=== PATIENT | female | born 1950 | race African-American/Black ===

== ENCOUNTER 2016-11-23 08:46 | Emergency (ER) | payer MEDICAID ==
[~2016-11-23] VITALS: Ht 154.9 cm; Wt 78.0 kg
[~2016-11-23 08:46] MED LIST: FAMO20TA8 PO; FURO40TA5 PO; LEVO500T15 PO; SPIR100T24 PO; TRAM50TA3 PO
[2016-11-23 10:23] LABS: BASOPHILS % 1.6 % (0.0-2.0); EOSINOPHILS % 1.2 % (0.0-5.0); HEMATOCRIT. 39.5 % (36.0-48.0); HEMOGLOBIN. 13.2 g/dL (12.0-16.0); LYMPHOCYTES % 14.8 % (20.0-50.0); MEAN CORPUSCULAR HEMOGLOBIN 21.7 pg (28.0-32.0); MEAN CORPUSCULAR HGB CONC 33.4 g/dL (31.0-37.0); MEAN PLATELET VOLUME 8.3 fl (7.4-10.4); MONOCYTES % 6.6 % (2.0-8.0); NEUTROPHILS % 75.8 % (40.0-76.0); PLATELET 234 x1000/uL (130-400); RED BLOOD CELL COUNT 6.08 mill/uL (4.2-5.4); RED CELL DISTRIBUTION WIDTH 23.2 % (11.6-14.6)
[2016-11-23 10:24] LABS: ADD RBC MORPHOLOGY YES; DIFFERENTIAL COMMENT 1
[2016-11-23 10:33] LABS: PARTIAL THROMBOPLASTIN TIME 28.2 sec (24.0-34.0); PROTHROMBIN TIME 10.9 sec
[2016-11-23] MEDS ORDERED: TRAMADOL 50MG TABLET PO ONE (10:45)
[2016-11-23 10:47] LABS: ANISOCYTOSIS 3+; PLATELET ESTIMATE NORMAL
[2016-11-23 14:00] VITALS: BP 118/74
== END 2016-11-23 14:17 | disposition home or self-care (01) ==
LOC: ER 09:56
DX: R10.9 Unspecified abdominal pain (principal); Z88.6 Allergy status to analgesic agent; Z79.899 Other long term (current) drug therapy; M19.90 Unspecified osteoarthritis, unspecified site; C85.90 Non-Hodgkin lymphoma, unspecified, unspecified site; R60.9 Edema, unspecified; I10 Essential (primary) hypertension
CPT/HCPCS: 36415; 76700; 85025; 85610; 85730; 99285; Z7610

== ENCOUNTER 2018-09-16 22:51 | Inpatient (IN) | payer MEDICAID ==
[~2018-09-16] VITALS: Ht 157.5 cm; Wt 78.5 kg
[~2018-09-16 22:51] MED LIST changes: -LEVO500T15 PO; +LEVO500T2 PO; -SPIR100T24 PO; +SPIR100T5 PO
[2018-09-17] MEDS ORDERED: MORPHINE SULFATE 4 MG/ML CPJ (NOT FOR IM USE) IV STA (01:54)
[2018-09-17] MEDS ORDERED: SODIUM CHLORIDE 0.9% 500 ML IV ONE ×2 (02:15→05:00)
[2018-09-17 02:20] LABS: CLARITY URINE TURBID (CLEAR); COLOR URINE DARK YELLOW (YELLOW); KETONES URINE TRACE (NEGATIVE); LEUKOCYTE ESTERASE URINE TRACE (NEGATIVE); NITRITE URINE POSITIVE (NEGATIVE); OCCULT BLOOD URINE NEGATIVE (NEGATIVE); PROTEIN URINE 2+ (NEGATIVE); SPECIFIC GRAVITY URINE 1.028 (1.005-1.030)
[2018-09-17 02:32] LABS: HEMATOCRIT. 23.8 % (36.0-48.0); HEMOGLOBIN. 7.9 g/dL (12.0-16.0); MEAN CORPUSCULAR HEMOGLOBIN 22.9 pg (28.0-32.0); MEAN CORPUSCULAR VOLUME 68.6 fL (81.0-99.0); RED BLOOD CELL COUNT 3.47 mill/uL (4.2-5.4); RED CELL DISTRIBUTION WIDTH 23.8 % (11.6-14.6)
[2018-09-17 02:39] LABS: INR 1.3; PARTIAL THROMBOPLASTIN TIME 43.7 sec (23.4-31.0); PROTHROMBIN TIME 13.3 sec (9.1-11.1)
[2018-09-17 02:40] LABS: CHLORIDE 96 mEq/L (98-107)
[2018-09-17 02:53] LABS: MEAN PLATELET VOLUME 10.8 fl (7.4-10.4); PLATELET 79 x1000/uL (130-400)
[2018-09-17] MEDS ORDERED: CEFTRIAXONE 1 G PREMIX 50 ML IV ONE (03:15)
[2018-09-17] MEDS ORDERED: AZITHROMYCIN 500 MG in DEXT 5% WATER 250 ML IV SCH (03:15)
[2018-09-17] MEDS ORDERED: IOHEXOL-300 100 ML BOTTLE ONE (03:41)
[2018-09-17 05:24] LABS: ATYPICAL LYMPHOCYTES 8
[2018-09-17 05:25] LABS: PLATELET ESTIMATE DECREASED
[2018-09-17] MEDS: AZITHROMYCIN 500 MG TABLET PO NR ×2 (05:29→05:30)
[2018-09-17] MEDS ORDERED: CLONIDINE 0.1MG TABLET PO PRN (07:30)
[2018-09-17] MEDS ORDERED: PIPERACILLIN/TAZ 3.375G PREMIX 50 ML IV SCH (07:30)
[2018-09-17] MEDS ORDERED: ONDANSETRON HCL 4MG/2ML INJ IV PRN (07:30)
[2018-09-17 14:10] LABS: *AMPHETAMINES SCREEN URINE NEGATIVE (NEGATIVE); *BARBITURATES SCREEN URINE NEGATIVE (NEGATIVE); *BENZODIAZEPINES SCREEN URINE NEGATIVE (NEGATIVE); *COCAINE SCREEN URINE NEGATIVE (NEGATIVE); METHADONE URINE SCREEN NEGATIVE (NEGATIVE)
[2018-09-17 14:11] LABS: CANNABINOID URINE SCREEN PRESUMTIVE POSITIVE (NEGATIVE); OPIATES URINE SCREEN NEGATIVE (NEGATIVE); PHENCYCLIDINE URINE SCREEN NEGATIVE (NEGATIVE)
[2018-09-17 23:30] VITALS: BP 97/37
[2018-09-18] VITALS: BP 97/37
[2018-09-18] MEDS ORDERED: DEXT 5%/0.45% NACL 1000ML 1,000 ML IV SCH (00:30)
[2018-09-18] MEDS ORDERED: ONDA4TAB50 PO (01:35)
[2018-09-18] MEDS ORDERED: ENTE0.5T4 PO (01:35)
[2018-09-18] MEDS ORDERED: VANCOMYCIN 1250MG in DEXTROSE 5% WATER 250ML IV NR (02:00)
[2018-09-18] MEDS: ACETAMINOPHEN 650MG/20.3ML UDC GT PRN ×2 (02:25→21:27)
[2018-09-18 04:00] VITALS: BP 99/51
[2018-09-18] MEDS: PIPERACILLIN/TAZ 3.375G PREMIX 50 ML IV SCH ×3 (05:33→21:26)
[2018-09-18 06:49] LABS: HEMATOCRIT. 23.1 % (36.0-48.0); HEMOGLOBIN. 7.9 g/dL (12.0-16.0); MEAN CORPUSCULAR HEMOGLOBIN 23.2 pg (28.0-32.0); MEAN CORPUSCULAR VOLUME 68.2 fL (81.0-99.0); MEAN PLATELET VOLUME 9.6 fl (7.4-10.4); RED BLOOD CELL COUNT 3.39 mill/uL (4.2-5.4)
[2018-09-18 08:00] VITALS: BP 90/51
[2018-09-18 12:00] VITALS: BP 97/53
[2018-09-18 12:16] LABS: PLATELET 81 x1000/uL (130-400)
[2018-09-18 12:20] LABS: PLATELET ESTIMATE DECREASED
[2018-09-18] MEDS ORDERED: LIDOCAINE HCL 1% 20ML VIAL (Pyxis) INJ ONE (12:35)
[2018-09-18] MEDS ORDERED: SODIUM BICARBONATE 4% (2.4MEQ) 5ML VIAL IV ONE (12:36)
[2018-09-18 13:00] LABS: CHLORIDE 99 mEq/L (98-107)
[2018-09-18 13:13] LABS: PHOSPHORUS 2.5 mg/dL (2.5-4.9)
[2018-09-18] MEDS: VANCOMYCIN 1 G PREMIX 200 ML IV SCH (15:50)
[2018-09-18 16:00] VITALS: BP 109/56
[2018-09-18 20:00] VITALS: BP 107/47
[2018-09-19] VITALS: BP 110/52
[2018-09-19 04:00] VITALS: BP 98/53
[2018-09-19] MEDS: PIPERACILLIN/TAZ 3.375G PREMIX 50 ML IV SCH ×3 (05:33→20:49)
[2018-09-19 07:25] LABS: CHLORIDE 98 mEq/L (98-107)
[2018-09-19 08:00] VITALS: BP 107/52
[2018-09-19 08:03] LABS: HEMOGLOBIN. 7.8 g/dL (12.0-16.0); MEAN CORPUSCULAR VOLUME 68.2 fL (81.0-99.0); RED BLOOD CELL COUNT 3.37 mill/uL (4.2-5.4); RED CELL DISTRIBUTION WIDTH 24.1 % (11.6-14.6)
[2018-09-19] MEDS: VANCOMYCIN 1 G PREMIX 200 ML IV SCH (10:38)
[2018-09-19 12:00] VITALS: BP 100/50
[2018-09-19 13:56] LABS: PLATELET ESTIMATE DECREASED
[2018-09-19 13:57] LABS: MEAN PLATELET VOLUME 10.7 fl (7.4-10.4); PLATELET 95 x1000/uL (130-400)
[2018-09-19 16:00] VITALS: BP 97/43
[2018-09-19 20:00] VITALS: BP 94/44
[2018-09-20] VITALS: BP 90/42
[2018-09-20] MEDS: VANCOMYCIN 1 G PREMIX 200 ML IV SCH ×2 (03:59→21:35)
[2018-09-20 04:00] VITALS: BP 96/41
[2018-09-20] MEDS: PIPERACILLIN/TAZ 3.375G PREMIX 50 ML IV SCH ×3 (05:45→21:33)
[2018-09-20 06:56] LABS: HEMATOCRIT. 21.8 % (36.0-48.0); HEMOGLOBIN. 7.4 g/dL (12.0-16.0); MEAN CORPUSCULAR HEMOGLOBIN 22.9 pg (28.0-32.0); MEAN CORPUSCULAR VOLUME 67.4 fL (81.0-99.0); MEAN PLATELET VOLUME 10.1 fl (7.4-10.4); PLATELET 80 x1000/uL (130-400); RED BLOOD CELL COUNT 3.23 mill/uL (4.2-5.4); RED CELL DISTRIBUTION WIDTH 24.5 % (11.6-14.6)
[2018-09-20 07:59] LABS: CHLORIDE 97 mEq/L (98-107)
[2018-09-20 08:00] VITALS: BP 92/50
[2018-09-20 10:43] LABS: ATYPICAL LYMPHOCYTES 6; PLATELET ESTIMATE DECREASED
[2018-09-20 12:00] VITALS: BP 84/40
[2018-09-20] MEDS: SODIUM CHLORIDE 0.9% 1,000 ML IV SCH (14:00)
[2018-09-20 16:21] LABS: TOTAL IRON BINDING CAPACITY 220 ug/dL (250-450)
[2018-09-20] MEDS: ACETAMINOPHEN 650MG/20.3ML UDC GT PRN (16:49)
[2018-09-20 17:33] VITALS: BP 96/48
[2018-09-20 20:00] VITALS: BP 84/44
[2018-09-21] VITALS: BP 90/56
[2018-09-21 04:00] VITALS: BP 88/37
[2018-09-21] MEDS: PIPERACILLIN/TAZ 3.375G PREMIX 50 ML IV SCH ×3 (06:04→23:20)
[2018-09-21] MEDS: ACETAMINOPHEN 650MG/20.3ML UDC GT PRN (06:06)
[2018-09-21] MEDS: SODIUM CHLORIDE 0.9% 1,000 ML IV SCH ×2 (06:07→16:40)
[2018-09-21 07:14] LABS: CHLORIDE 101 mEq/L (98-107); HEMATOCRIT. 22.4 % (36.0-48.0); HEMOGLOBIN. 7.6 g/dL (12.0-16.0); MEAN CORPUSCULAR VOLUME 68.1 fL (81.0-99.0); MEAN PLATELET VOLUME 9.6 fl (7.4-10.4); PLATELET 81 x1000/uL (130-400); RED BLOOD CELL COUNT 3.28 mill/uL (4.2-5.4); RED CELL DISTRIBUTION WIDTH 24.1 % (11.6-14.6)
[2018-09-21 07:35] LABS: TOTAL IRON BINDING CAPACITY 207 ug/dL (250-450)
[2018-09-21 08:00] VITALS: BP 85/43
[2018-09-21 12:00] VITALS: BP 96/62
[2018-09-21 12:54] LABS: NUCLEATED RED BLOOD CELLS 1 /100 WBC; PLATELET ESTIMATE DECREASED
[2018-09-21] MEDS: VANCOMYCIN 1250MG in DEXTROSE 5% WATER 250ML IV SCH ×2 (15:11→23:20)
[2018-09-21 16:00] VITALS: BP 89/43
[2018-09-21 20:00] VITALS: BP 94/51
[2018-09-22] VITALS: BP 105/51
[2018-09-22 04:00] VITALS: BP 99/47
[2018-09-22] MEDS: PIPERACILLIN/TAZ 3.375G PREMIX 50 ML IV SCH (06:57)
[2018-09-22] MEDS: SODIUM CHLORIDE 0.9% 1,000 ML IV SCH (06:58)
[2018-09-22 08:00] VITALS: BP 102/47
[2018-09-22] MEDS: VANCOMYCIN 1250MG in DEXTROSE 5% WATER 250ML IV SCH (09:20)
[2018-09-22 10:18] VITALS: BP 113/59
== END 2018-09-22 11:30 | disposition home or self-care (01) | DRG 720 ==
LOC: ER 22:51 → 7WST 09-17 04:31 → EDBEDREQ 09-17 04:45 → EDBEDREQTM 09-17 04:45 → ENRESERV 09-17 20:20
PROVIDERS: ADMIT Internal Medicine Nephrology; ATTEND Internal Medicine Nephrology
PROC: 0W9G30Z Drainage of Peritoneal Cavity with Drainage Device, Percutaneous Approach (ICD-10-PCS; principal; 2018-09-18)
DX: A41.9 Sepsis, unspecified organism (principal); E43 Unspecified severe protein-calorie malnutrition; I81 Portal vein thrombosis; D69.6 Thrombocytopenia, unspecified; E87.8 Other disorders of electrolyte and fluid balance, not elsewhere classified; C85.97 Non-Hodgkin lymphoma, unspecified, spleen; E87.1 Hypo-osmolality and hyponatremia; R18.8 Other ascites; K74.60 Unspecified cirrhosis of liver; N39.0 Urinary tract infection, site not specified; F12.90 Cannabis use, unspecified, uncomplicated; K42.9 Umbilical hernia without obstruction or gangrene; B19.10 Unspecified viral hepatitis B without hepatic coma; D63.8 Anemia in other chronic diseases classified elsewhere; M19.90 Unspecified osteoarthritis, unspecified site; R16.1 Splenomegaly, not elsewhere classified; Z92.21 Personal history of antineoplastic chemotherapy; Z68.31 Body mass index [BMI] 31.0-31.9, adult; Z88.6 Allergy status to analgesic agent
CPT/HCPCS: 36415; 49083; 71045; 74177; 80048; 80202; 80305; 82728; 83540; 83550; 83735; 83880; 84100; 84484; 86850; 86900; 88108; 88312; 93005; 96374; 96375; 97162; 99284; 99285; J0456; J0696; J2270; J2543; J3370; J3490; J7030; J7040; J7060; Q9967